=== PATIENT | female | born 1940 | race Caucasian/White ===

== ENCOUNTER 2022-12-01 12:55 | Emergency (ER) | payer OTHER ==
[~2022-12-01] VITALS: Ht 165.1 cm; Wt 70.0 kg
[2022-12-01 13:24] VITALS: BP 139/49; PULSE 59; RESP 18; O2SAT 98
== END 2022-12-01 15:57 | disposition left against medical advice (07) ==
LOC: ER 12:55
DX: M79.604 Pain in right leg (principal); Z53.21 Procedure and treatment not carried out due to patient leaving prior to being seen by health care provider